=== PATIENT | female | born 1955 | race Caucasian/White ===

== ENCOUNTER 2017-04-20 18:08 | Observation (INO) | payer BC, OTHER ==
[~2017-04-20] VITALS: Ht 170.2 cm; Wt 82.0 kg
[~2017-04-20 18:08] MED LIST: HYDR-2768 PO; LEVO125T3 PO; LISI-363 PO; PERC5TAB12 PO
[2017-04-20 18:09] VITALS: BP 130/71; PULSE 95; RESP 20; TEMP 99.3; O2SAT 97
--- NOTE | 2017-04-20 18:16 | PD ---
Physical Exam Time Seen by Provider: 18:14 Narrative 61yo F c/o chest pain and tightness since 730 this morning. Denies SOB. +N w/ o vomiting. Chest pain feels better when she applies pressure to her chest. Patient seen in triage. VS reviewed. Awaiting bed placement. Data Data Last Documented VS Vital Signs Date Time Temp Pulse Resp B/P Pulse Ox O2 Delivery O2 Flow Rate FiO2 04/20/17 18:09 99.3 95 20 130/71 97 Room Air [facility] Supervised Visit with ARGENIS: Chaya Gonzalez Apr 20, 2017 18:16
[2017-04-20] MEDS ORDERED: SODIUM CHLORIDE 0.9% FLUSH 10 ML FLUSH IVF PRN (18:30)
[2017-04-20] MEDS ORDERED: ASPIRIN 325 MG TAB PO ONE (18:30)
--- NOTE | 2017-04-20 18:30 | PD ---
HPI Chief Complaint: Chest Pain Time Seen by Provider: 18:25 Travel History International Travel<30 days: No Contact w/Intl Traveler<30days: No Traveled to known affect area: No History of Present Illness HPI 61-year-old female with history of hypertension, hypothyroidism, presents to the ER today for substernal chest discomfort that started on its own and feels like a pressure with radiation up to the jaws area. She has been nauseous but she denies him vomiting, shortness of breath, or any other symptoms. Pain is currently a 2 out of 10 but was worse before. She states that it feels worse to lay down. Modifying Factors: None Associated Signs & Symptoms: Chest pain Risk Factors: Hypertension history PFSH Past Medical History Autoimmune Disease: Yes (GLORIA) Heart Rhythm Problems: No Cardiac Catheterization: No Cardiovascular Problems: Yes (HTN) High Cholesterol: Yes Congestive Heart Failure: No Diabetes: No Diminished Hearing: No GERD: Yes Hypertension: Yes Thyroid Disease: Yes (hypo) ?: Not Menopausal: Yes : 3 Para: 3 Miscarriage: 0 Past Surgical History Cholecystectomy: Yes (2008) Coronary Artery Bypass Graft: No Pacemaker: No Other Surgery: Yes (breast augmentation 1999) Social History Alcohol Use: Yes Tobacco Use: No Substance Use: No Allergies-Medications (Allergen,Severity, Reaction): Coded Allergies: No Known Allergies (Unverified , 04/20/17) Reported Meds & Prescriptions Reported Meds & Active Scripts Active Reported Lisinopril 20 Mg Tab 20 Mg PO DAILY Hydrochlorothiazide 25 Mg Tab 25 Mg PO DAILY Levoxyl (Levothyroxine Sodium) 125 Mcg Tab 125 Mcg PO DAILY Review of Systems Except as stated in HPI: all other systems reviewed are Neg Physical Exam Narrative GENERAL: Well-developed elderly white female patient currently in mild distress. Awake and oriented 3. SKIN: Focused skin assessment warm/dry. HEAD: Atraumatic. Normocephalic. EYES: Pupils equal and round. No scleral icterus. No injection or drainage. ENT: No nasal bleeding or discharge. Mucous membranes pink and moist. NECK: Trachea midline. No JVD. CARDIOVASCULAR: Regular rate and rhythm. No murmur appreciated. Pulses are present and equal bilaterally. RESPIRATORY: No accessory muscle use. Clear to auscultation. Breath sounds equal bilaterally. GASTROINTESTINAL: Abdomen soft, non-tender, nondistended. Hepatic and splenic margins not palpable. MUSCULOSKELETAL: No obvious deformities. No clubbing. No cyanosis. No edema. NEUROLOGICAL: Awake and alert. No obvious cranial nerve deficits. Motor grossly within normal limits. Normal speech. PSYCHIATRIC: Appropriate mood and affect; insight and judgment normal. Data Data Last Documented VS Vital Signs Date Time Temp Pulse Resp B/P Pulse Ox O2 Delivery O2 Flow Rate FiO2 04/20/17 18:44 86 18 108/66 96 Room Air 04/20/17 18:09 99.3 Orders Electrocardiogram (04/20/17 18:21) Ckmb (Isoenzyme) Profile (04/20/17 18:21) Complete Blood Count With Diff (04/20/17 18:21) Comprehensive Metabolic Panel (04/20/17 18:21) Magnesium (Mg) (04/20/17 18:21) Prothrombin Time / Inr (Pt) (04/20/17 18:21) Act Partial Throm Time (Ptt) (04/20/17 18:21) Troponin I (04/20/17 18:21) Lipase (04/20/17 18:21) Chest, Single Ap (04/20/17 18:21) Ecg Monitoring (04/20/17 18:21) Bilateral Bp Monitoring (04/20/17 18:21) Iv Access Insert/Monitor (04/20/17 18:21) Oximetry (04/20/17 18:21) Oxygen Administration (04/20/17 18:21) Sodium Chloride 0.9% Flush (Ns Flush) (04/20/17 18:30) Aspirin (Aspirin) (04/20/17 18:30) Labs Laboratory Tests Test 04/20/17 18:35 White Blood Count 9.9 TH/MM3 Red Blood Count 4.29 MIL/MM3 Hemoglobin 13.0 GM/DL Hematocrit 37.7 % Mean Corpuscular Volume 87.9 FL Mean Corpuscular Hemoglobin 30.3 PG Mean Corpuscular Hemoglobin 34.4 % Concent Red Cell Distribution Width 13.8 % Platelet Count 227 TH/MM3 Mean Platelet Volume 10.3 FL Neutrophils (%) (Auto) 82.5 % Lymphocytes (%) (Auto) 9.7 % Monocytes (%) (Auto) 7.1 % Eosinophils (%) (Auto) 0.2 % Basophils (%) (Auto) 0.5 % Neutrophils # (Auto) 8.2 TH/MM3 Lymphocytes # (Auto) 1.0 TH/MM3 Monocytes # (Auto) 0.7 TH/MM3 Eosinophils # (Auto) 0.0 TH/MM3 Basophils # (Auto) 0.0 TH/MM3 CBC Comment DIFF FINAL Differential Comment MDM Medical Decision Making Medical Screen Exam Complete: Yes Emergency Medical Condition: Yes Medical Record Reviewed: Yes Interpretation(s) EKG shows NSR, no ST elevation or depression, and no arrhythmias. No significant T-wave inversions. Differential Diagnosis Chest painsACS versus costochondritis versus pneumonia versus dysrhythmias versus anxiety Narrative Course Chest pain workup was initiated and aspirin was given in the ER. Physician Communication Physician Communication Case is signed out to Dr. Hugo at 7 PM pending workup. Diagnosis Primary Impression: Chest pain, atypical Sheila Hutchinson MD Apr 20, 2017 18:30
[2017-04-20] MEDS ORDERED: LEVO125T50 PO (18:41)
[2017-04-20] MEDS ORDERED: LEVO.125 PO (18:41)
[2017-04-20] MEDS ORDERED: HYDR25TA5 PO (18:41)
[2017-04-20] MEDS ORDERED: LISI-515 PO (18:41)
[2017-04-20 18:44] VITALS: BP 108/66; PULSE 86; RESP 18; O2SAT 96
[2017-04-20 18:46] LABS: AUTOMATED NEUTROPHIL # 8.2 TH/MM3 (1.8-7.7); BASOPHIL % 0.5 % (0.0-2.0); EOSINOPHIL % 0.2 % (0.0-4.0); HEMATOCRIT 37.7 % (35.0-46.0); HEMO FLAGS DIFF FINAL; LYMPH % 9.7 % (9.0-44.0); MEAN CELL VOLUME 87.9 FL (80.0-100.0); MEAN CORPUSCULAR HEMOGLOBIN 30.3 PG (27.0-34.0); MEAN CORPUSCULAR HGB CONC 34.4 % (32.0-36.0); MONO % 7.1 % (0.0-8.0); NEUT % 82.5 % (16.0-70.0); PLATELET COUNT 227 TH/MM3 (150-450); RED BLOOD COUNT 4.29 MIL/MM3 (4.00-5.30); RED CELL DISTRIBUTION WIDTH 13.8 % (11.6-17.2); WHITE BLOOD COUNT 9.9 TH/MM3 (4.0-11.0)
[2017-04-20 19:08] LABS: APTT (PATIENT) 24.2 SEC (24.3-30.1); INTERNATIONAL NORMALIZED RATIO 0.9 RATIO; PROTHROMBIN TIME - PATIENT 9.8 SEC (9.8-11.6)
[2017-04-20 19:13] LABS: ALT (GPT) 22 U/L (10-53)
[2017-04-20 19:14] LABS: ANION GAP 8 MEQ/L (5-15); AST (GOT) 24 U/L (15-37); BICARBONATE 28.8 MEQ/L (21.0-32.0); BLOOD UREA NITROGEN 12 MG/DL (7-18); CHLORIDE 100 MEQ/L (98-107); GLOMERULAR FILTRATION RATE 70 ML/MIN (>89); SODIUM (NA) 137 MEQ/L (136-145)
[2017-04-20 19:20] LABS: ALKALINE PHOSPHATASE 73 U/L (45-117); TOTAL BILIRUBIN ADULT 0.6 MG/DL (0.2-1.0)
--- NOTE | 2017-04-20 19:20 | RADRPT ---
EXAM DATE/TIME: 04/20/2017 18:58 [facility] COMPARISON: CHEST SINGLE AP, April 01, 2015, 18:26. INDICATIONS : Chest tightness today. MEDICAL HISTORY : Hypertension. SURGICAL HISTORY : Cholecystectomy. ENCOUNTER: Initial ACUITY: 1 day PAIN SCORE: 2/10 LOCATION: Bilateral chest FINDINGS: A single view of the chest demonstrates the lungs to be symmetrically aerated without evidence of mas s, infiltrate or effusion. The cardiomediastinal contours are unremarkable. Osseous structures are intact. There are multiple overlying electrical leads. CONCLUSION: No acute disease. Jhon Silva MD on April 20, 2017 at 19:18 Board Certified Radiologist. This report was verified electronically.
[2017-04-20 19:21] LABS: CREATINE KINASE 68 U/L (26-192); POTASSIUM 3.9 MEQ/L (3.5-5.1)
--- NOTE | 2017-04-20 19:44 | PD ---
Physical Exam Date Seen by Provider: Apr 20, 2017 Time Seen by Provider: 19:05 Narrative The patient was signed out to me by Dr. Herrera. Patient came in with chest pain. Patient has risk factors with hypertension, age greater than 50. The patient had an EKG that was equivocal no ST elevation or depression. Cardiac enzymes come back as negative for elevation. Data Data Last Documented VS Vital Signs Date Time Temp Pulse Resp B/P Pulse Ox O2 Delivery O2 Flow Rate FiO2 04/20/17 18:44 86 18 108/66 96 Room Air 04/20/17 18:09 99.3 Orders Electrocardiogram (04/20/17 18:21) Ckmb (Isoenzyme) Profile (04/20/17 18:21) Complete Blood Count With Diff (04/20/17 18:21) Comprehensive Metabolic Panel (04/20/17 18:21) Magnesium (Mg) (04/20/17 18:21) Prothrombin Time / Inr (Pt) (04/20/17 18:21) Act Partial Throm Time (Ptt) (04/20/17 18:21) Troponin I (04/20/17 18:21) Lipase (04/20/17 18:21) Chest, Single Ap (04/20/17 18:21) Ecg Monitoring (04/20/17 18:21) Bilateral Bp Monitoring (04/20/17 18:21) Iv Access Insert/Monitor (04/20/17 18:21) Oximetry (04/20/17 18:21) Oxygen Administration (04/20/17 18:21) Sodium Chloride 0.9% Flush (Ns Flush) (04/20/17 18:30) Aspirin (Aspirin) (04/20/17 18:30) Labs Laboratory Tests Test 04/20/17 18:35 White Blood Count 9.9 TH/MM3 Red Blood Count 4.29 MIL/MM3 Hemoglobin 13.0 GM/DL Hematocrit 37.7 % Mean Corpuscular Volume 87.9 FL Mean Corpuscular Hemoglobin 30.3 PG Mean Corpuscular Hemoglobin 34.4 % Concent Red Cell Distribution Width 13.8 % Platelet Count 227 TH/MM3 Mean Platelet Volume 10.3 FL Neutrophils (%) (Auto) 82.5 % Lymphocytes (%) (Auto) 9.7 % Monocytes (%) (Auto) 7.1 % Eosinophils (%) (Auto) 0.2 % Basophils (%) (Auto) 0.5 % Neutrophils # (Auto) 8.2 TH/MM3 Lymphocytes # (Auto) 1.0 TH/MM3 Monocytes # (Auto) 0.7 TH/MM3 Eosinophils # (Auto) 0.0 TH/MM3 Basophils # (Auto) 0.0 TH/MM3 CBC Comment DIFF FINAL Differential Comment Prothrombin Time 9.8 SEC Prothromb Time International 0.9 RATIO Ratio Activated Partial 24.2 SEC Thromboplast Time Sodium Level 137 MEQ/L Potassium Level 3.9 MEQ/L Chloride Level 100 MEQ/L Carbon Dioxide Level 28.8 MEQ/L Anion Gap 8 MEQ/L Blood Urea Nitrogen 12 MG/DL Creatinine 0.83 MG/DL Estimat Glomerular Filtration 70 ML/MIN Rate Random Glucose 98 MG/DL Calcium Level 9.1 MG/DL Magnesium Level 2.0 MG/DL Total Bilirubin 0.6 MG/DL Aspartate Amino Transf 24 U/L (AST/SGOT) Alanine Aminotransferase 22 U/L (ALT/SGPT) Alkaline Phosphatase 73 U/L Total Creatine Kinase 68 U/L Troponin I LESS THAN 0.02 NG/ML Total Protein 8.3 GM/DL Albumin 3.8 GM/DL Lipase 53 U/L MDM Medical Record Reviewed: Yes Supervised Visit with ARGENIS: No Differential Diagnosis ACS versus peptic ulcer disease versus pleurisy Narrative Course 61-year-old female presents today with complaints of chest pain. The patient was seen initially by Dr. Herrera. She was signed out to me at change of shift. We 're awaiting the cardiac enzymes. Cardiac enzymes show no evidence of acute findings. I discussed with the patient that the recommendation given her history of hypertension and her age would be to bring her into the chest pain center under observation. She was amenable to this plan. Diagnosis Primary Impression: Chest pain, atypical Additional Impression: Hypertension Admitting Information Admitting Physician Requests: Observation Harpreet Hugo MD Apr 20, 2017 19:44
[2017-04-20] MEDS ORDERED: ONDANSETRON HCL 4 MG/2 ML VIAL IV PRN (19:45)
[2017-04-20] MEDS ORDERED: ACETAMINOPHEN 500 MG CPLT PO PRN (19:45)
[2017-04-20] MEDS ORDERED: SODIUM CHLORIDE 0.9% FLUSH 10 ML FLUSH IV FLUSH PRN (19:45)
[2017-04-20 19:52] VITALS: O2SAT 98
[2017-04-20] MEDS: SODIUM CHLORIDE 0.9% FLUSH 10 ML FLUSH IV FLUSH SCH (21:00)
[2017-04-20 21:03] VITALS: BP 104/59; PULSE 80; RESP 18; O2SAT 96
[2017-04-20 22:27] LABS: CREATINE KINASE 42 U/L (26-192)
[2017-04-20 23:22] VITALS: PULSE 69
[2017-04-21 01:23] LABS: CREATINE KINASE 50 U/L (26-192)
[2017-04-21 01:32] VITALS: BP 96/50; PULSE 72; RESP 16; TEMP 97.8; O2SAT 96
[2017-04-21 05:05] VITALS: BP 101/58; PULSE 82; RESP 18; TEMP 98.4; O2SAT 96
[2017-04-21 08:00] VITALS: PULSE 80
[2017-04-21] MEDS ORDERED: KETOROLAC TROMETHAMINE 30 MG/ML (IVP) VIAL IVP ONE (08:00)
[2017-04-21 08:20] VITALS: O2SAT 96
[2017-04-21] MEDS: SODIUM CHLORIDE 0.9% FLUSH 10 ML FLUSH IV FLUSH SCH (08:22)
[2017-04-21 08:31] VITALS: BP 91/53; PULSE 66; RESP 16; TEMP 98.1; O2SAT 95
--- NOTE | 2017-04-21 09:03 | HHI.HP ---
HPI Primary Care Physician No Primary Care Physician Chief Complaint Chest pain History of Present Illness This is a 61-year-old female that presents to the ED via private vehicle complaining of a a central chest pressure. It began yesterday morning about 7: 30 while she was getting ready for work. It lasted all throughout the day. She found resting on her right side worsens her symptoms. Nothing really seemed to help. Denies shortness breath, nausea, or diaphoresis. The discomfort is still there however not as intense. Denies history of CAD. She had a nonischemic Manohar protocol ETT in 2015 at this facility. Denies recent illnesses. Review of Systems General: Patient denies fevers, chills recent, and recent travel. Denies recent illness. HEENT: Patient denies headache, sore throat, difficulty swallowing. Cardiovascular: Has the chest discomfort as mentioned above. Denies sensation of heart beating rapidly or irregularly. No syncope. Denies diaphoresis. Respiratory: Denies shortness of breath or inspirational chest discomfort. Denies coughing wheezing or hemoptysis. GI: Patient denies nausea, vomiting, diarrhea, abdominal pain, bloody stools. Musculoskeletal: Patient denies joint pain or edema. Denies calf pain or edema. Neurovascular: Patient denies numbness, tingling, weakness in extremities. Denies headache. Endocrine: Denies polyuria and polydipsia. Hematologic: Denies easy bruising. Skin: Denies rash or itching. Past Family Social History Allergies: Coded Allergies: No Known Allergies (Unverified , 04/20/17) Past Medical History Hypertension and hypothyroidism. Denies diabetes, hyperlipidemia, and CAD. Past Surgical History Cholecystectomy and breast augmentation. Reported Medications Reported Meds & Active Scripts Active Reported Lisinopril 20 Mg Tab 20 Mg PO DAILY Hydrochlorothiazide 25 Mg Tab 25 Mg PO DAILY Levoxyl (Levothyroxine Sodium) 125 Mcg Tab 125 Mcg PO DAILY Active Ordered Medications Current Medications Medications (Trade) Dose Ordered Sig/Js Route Start Time Stop Time Status Last Admin (NS Flush) 2 ml UNSCH PRN IVF 04/20/17 18:30 (NS Flush) 2 ml UNSCH PRN IV FLUSH 04/20/17 19:45 (NS Flush) 2 ml BID IV FLUSH 04/20/17 21:00 04/21/17 08:22 (Tylenol) 500 mg Q4H PRN PO 04/20/17 19:45 (Zofran Inj) 4 mg Q6H PRN IV 04/20/17 19:45 Family History Denies family history of CAD. Social History Patient quit smoking in 2006 prior to that she smoked about 1 pack of cigarettes daily for 36 years. She denies alcohol or illicit drugs. 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 Physical Exam Vital Signs Vital Signs Date Time Temp Pulse Resp B/P Pulse Ox O2 Delivery O2 Flow Rate FiO2 04/21/17 08:31 98.1 66 16 91/53 95 04/21/17 08:20 96 21 04/21/17 05:05 98.4 82 18 101/58 96 04/21/17 01:32 97.8 72 16 96/50 96 04/20/17 23:22 69 04/20/17 21:03 80 18 104/59 96 Room Air 04/20/17 19:52 98 21 04/20/17 18:44 86 18 108/66 96 Room Air 04/20/17 18:44 86 18 108/66 96 Room Air 04/20/17 18:38 Room Air 04/20/17 18:38 97 Room Air 04/20/17 18:09 99.3 95 20 130/71 97 Room Air Physical Exam GENERAL: This is a well-nourished, well-developed patient, in no apparent distress. Patient speaks in clear complete sentences. Patient is pleasant. HEENT: Head is atraumatic and normocephalic. Neck is supple without lymphadenopathy and trachea is midline. No JVD or carotid bruits. CARDIOVASCULAR: Regular rate and rhythm without murmurs, gallops, or rubs. RESPIRATORY: Clear to auscultation. Breath sounds equal bilaterally. No wheezes , rales, or rhonchi. Chest wall is tender over the inferior aspect of the sternum which is worsening the symptoms that she has been having. No use of accessory muscles. GASTROINTESTINAL: Abdomen is nontender, nondistended. Abdomen soft. No obvious pulsatile mass or bruit. No CVA tenderness. Strong femoral pulses bilaterally. Normal bowel sounds in all quadrants. MUSCULOSKELETAL: Patient is moving upper and lower extremities freely. No calf tenderness or edema, no Homans sign. Strong pulses in upper and lower extremities. NEUROLOGICAL: Patient is alert and oriented. Cranial nerves 2-12 are grossly intact. No focal deficits and speech is clear. SKIN: No rash and turgor is normal. Laboratory Laboratory Tests Test 04/20/17 04/20/17 04/21/17 18:35 21:30 00:38 White Blood Count 9.9 Red Blood Count 4.29 Hemoglobin 13.0 Hematocrit 37.7 Mean Corpuscular Volume 87.9 Mean Corpuscular Hemoglobin 30.3 Mean Corpuscular Hemoglobin 34.4 Concent Red Cell Distribution Width 13.8 Platelet Count 227 Mean Platelet Volume 10.3 Neutrophils (%) (Auto) 82.5 Lymphocytes (%) (Auto) 9.7 Monocytes (%) (Auto) 7.1 Eosinophils (%) (Auto) 0.2 Basophils (%) (Auto) 0.5 Neutrophils # (Auto) 8.2 Lymphocytes # (Auto) 1.0 Monocytes # (Auto) 0.7 Eosinophils # (Auto) 0.0 Basophils # (Auto) 0.0 CBC Comment DIFF FINAL Differential Comment Prothrombin Time 9.8 Prothromb Time International 0.9 Ratio Activated Partial 24.2 Thromboplast Time Sodium Level 137 Potassium Level 3.9 Chloride Level 100 Carbon Dioxide Level 28.8 Anion Gap 8 Blood Urea Nitrogen 12 Creatinine 0.83 Estimat Glomerular Filtration 70 Rate Random Glucose 98 Calcium Level 9.1 Magnesium Level 2.0 Total Bilirubin 0.6 Aspartate Amino Transf 24 (AST/SGOT) Alanine Aminotransferase 22 (ALT/SGPT) Alkaline Phosphatase 73 Total Creatine Kinase 68 42 50 Troponin I LESS THAN 0.02 LESS THAN 0.02 LESS THAN 0.02 Total Protein 8.3 Albumin 3.8 Lipase 53 Result Diagram: 04/20/17183404/20/171834 Imaging Last 24 hours Impressions Chest X-Ray 04/20/171820 Signed Impressions: Service Date/Time: Thursday, April 20, 2017 18:58 - CONCLUSION: No acute disease. Jhon Silva MD Course EKGs have sinus rhythm with incomplete right bundle branch block. No significant ST segment depressions or elevations. Assessment and Plan Assessment and Plan * Atypical chest pain: Patient has had serial cardiac enzymes and EKGs for ruling out purposes. She has been seen by Dr. Olivia cardiology in the chest pain center and will undergo a Manohar protocol ETT. She'll be given Toradol to help with her discomfort. She'll be discharged home if her stress test is nonischemic. * Hypertension: Continue current medication. * Hypothyroidism: Continue current medication. Patient is stable at this time. She is agreeable to this plan. [place] Apr 21, 2017 09:03
--- NOTE | 2017-04-21 10:10 | HHI.DCPOC ---
Discharge Care Plan Diagnosis: (1) Chest pain, atypical (2) Hypertension (3) Hypothyroidism Goals to Promote Your Health * To prevent worsening of your condition and complications * To maintain your health at the optimal level Directions to Meet Your Goals Take your medications as prescribed Follow your dietary instruction Follow activity as directed Keep your appointments as scheduled Take your immunizations and boosters as scheduled If your symptoms worsen call your PCP, if no PCP go to Urgent Care Center or Emergency Room Smoking is Dangerous to Your Health. Avoid second hand smoke Call the 24-hour hour crisis hotline for domestic abuse at [place] Apr 21, 2017 10:09
[2017-04-21 11:29] VITALS: BP 96/67; PULSE 83; RESP 16; TEMP 97.9; O2SAT 96
--- NOTE | 2017-04-21 17:00 | EKG ---
Date Performed: 04/20/2017 Time Performed: 21:29:44 PTAGE: 61 years EKG: Sinus rhythm INDETERMINATE AXIS INCOMPLETE RIGHT BUNDLE BRANCH BLOCK BORDERLINE ECG Since PREVIOUS TRACING , no significant change noted PREVIOUS TRACIN04/20/2017 18.33 DOCTOR: Lea Olivia Interpretating Date/Time 04/21/2017 16:59:40
--- NOTE | 2017-04-21 17:01 | EKG ---
Date Performed: 04/21/2017 Time Performed: 00:59:21 PTAGE: 61 years EKG: Sinus rhythm INDETERMINATE AXIS INCOMPLETE RIGHT BUNDLE BRANCH BLOCK NONSPECIFIC ST ELEVATION BORDERLINE ECG Sinc e PREVIOUS TRACING , no significant change noted PREVIOUS TRACIN04/20/2017 21.29 DOCTOR: Lea Olivia Interpretating Date/Time 04/21/2017 17:00:31
--- NOTE | 2017-04-21 17:04 | TR ---
Date Performed: 04/21/2017 Time Performed: 09:42:42 DOCTOR: Lea Olivia DRUG LIST: CLINICAL HISTORY: CHEST PAIN REASON FOR TEST: REASON FOR ENDING: OBSERVATION: CONCLUSION: ETHEL PROTOCOL. NO CP. TEST STOPPED AFTER EXCEEDING GOAL HR SECONDARY TO SOB AND LEG FATIGUEMaximum GE=116 Max HR Achieved=91.0% Maximum LY=152/70 Total Exercise Time=7:30 COMMENTS:
--- NOTE | 2017-04-21 17:05 | EKG ---
Date Performed: 04/20/2017 Time Performed: 18:33:41 PTAGE: 61 years EKG: Sinus rhythm INDETERMINATE AXIS INCOMPLETE RIGHT BUNDLE BRANCH BLOCK NONSPECIFIC ST ELEVATION BORDERLINE ECG Sinc e PREVIOUS TRACING , no significant change noted PREVIOUS TRACIN04/02/2015 00.38 DOCTOR: Lea Olivia Interpretating Date/Time 04/21/2017 17:05:02
== END 2017-04-21 11:46 | disposition home or self-care (01) ==
LOC: NEPE 18:08 → NEDA 19:50 → NEPHCDU 22:05
PROVIDERS: ADMIT Internal Medicine Interventional Cardiology; ATTEND Internal Medicine Interventional Cardiology
DX: R07.89 Other chest pain (principal); I10 Essential (primary) hypertension; E03.9 Hypothyroidism, unspecified; Z87.891 Personal history of nicotine dependence
CPT/HCPCS: 71010; 80053; 82550; 83690; 83735; 84484; 85025; 85610; 85730; 93005; 93017; 96374; 99285; G0378; J1885